=== PATIENT | male | born 1985 | race Caucasian/White ===

== ENCOUNTER 2017-10-11 18:27 | Emergency (ER) | payer SELFPAY ==
[~2017-10-11] VITALS: Ht 182.9 cm; Wt 115.7 kg
[~2017-10-11 18:27] MED LIST: METF10007 PO; NPH,100V SQ
[2017-10-11 18:40] VITALS: BP 145/75
[2017-10-11] MEDS ORDERED: HYDROcodone/APAP 5/325MG 1 TAB TABLET PO ONE (19:15)
[2017-10-11] MEDS ORDERED: cefTRIAXone IM 1 GM VIAL IM ONE (19:15)
[2017-10-11] MEDS ORDERED: SULF1TAB24 PO (19:25)
[2017-10-11] MEDS ORDERED: IBUP-1060 PO (19:26)
--- NOTE | 2017-10-11 19:27 | PHYS DOC ---
Past Medical History Past Medical History: Diabetes-Type II Past Surgical History: No Surgical History Alcohol Use: None Drug Use: Marijuana Social History Narrative: pt denies 10/11/17 Adult General Chief Complaint Chief Complaint: ABSCESS HPI HPI Patient is a 32 year old male who presents with an abscess to his upper back that started a few days ago. He has been using a heating pad with no relief. The patient has several small areas that resemble pickings as well as numerous healed lesions covering his back and neck. He states that he needs pain medication. Review of Systems Review of Systems Constitutional: Denies fever or chills [] Respiratory: Denies cough or shortness of breath [] Cardiovascular: No additional information not addressed in HPI [] GI: Denies abdominal pain, nausea, vomiting, bloody stools or diarrhea [] : Denies dysuria or hematuria [] Musculoskeletal: Denies back pain or joint pain [] Integument: See HPI Neurologic: Denies headache, focal weakness or sensory changes [] Endocrine: Denies polyuria or polydipsia [] All other systems were reviewed and found to be within normal limits, except as documented in this note. Current Medications Current Medications Current Medications Medications (Trade) Dose Ordered Sig/Patrica Start Time Stop Time Status Last Admin Dose Admin Acetaminophen/ Hydrocodone Bitart (Lortab 5/325) 1 tab 1X ONCE 10/11/17 19:15 10/11/17 19:16 DC 10/11/17 19:19 1 TAB Ceftriaxone Sodium (Rocephin Im) 1 gm 1X ONCE 10/11/17 19:15 10/11/17 19:16 DC 10/11/17 19:18 1 GM Allergies Allergies Allergies Coded Allergies Type Severity Reaction Last Updated Verified No Known Drug Allergies 04/17/15 No Physical Exam Physical Exam Constitutional: Well developed, well nourished, no acute distress, non-toxic appearance. [] Neck: Normal range of motion, no tenderness, supple, no stridor. [] Cardiovascular:Heart rate regular rhythm, no murmur [] Lungs & Thorax: Bilateral breath sounds clear to auscultation [] Abdomen: Bowel sounds normal, soft, no tenderness, no masses, no pulsatile masses. [] Skin: 2 cm in diameter abscess with induration but no fluctuance to the patient' s left upper back with several small erythematous lesions that resemble pickings noted to back and neck Back: No tenderness, no CVA tenderness. [] Extremities: No tenderness, no cyanosis, no clubbing, ROM intact, no edema. [] Neurologic: Alert and oriented X 3, normal motor function, normal sensory function, no focal deficits noted. [] Psychologic: Affect normal, judgement normal, mood normal. [] Current Patient Data Vital Signs Vital Signs Date Time Temp Pulse Resp B/P (MAP) Pulse Ox O2 Delivery O2 Flow Rate FiO2 10/11/17 19:19 16 99 Room Air 10/11/17 18:40 97.7 118 145/75 (98) 97.7 EKG EKG [] Radiology/Procedures Radiology/Procedures [] Course & Med Decision Making Course & Med Decision Making Pertinent Labs and Imaging studies reviewed. (See chart for details) []The patient was given pain medication in the emergency department. He stated to the nurse that he takes 4 times that amount normally. I suggested that he try ibuprofen to help with pain. Attending physician attestation: I was working at the time of this patient's ER visit and was available for consultation, but did not personally interview, examine, or directly take part in the patient's care. DO Ectro Szymanski Disclaimer Ector Disclaimer This electronic medical record was generated, in whole or in part, using a voice recognition dictation system. Departure Departure Impression: Primary Impression: Abscess Disposition: 01 HOME, SELF-CARE Condition: STABLE Referrals: NO PCP (PCP) Patient Instructions: Abscess Additional Instructions: Take the medication as directed. Follow-up with your primary care provider for recheck in 3 days or return to the emergency department if worsening. You may use ibuprofen or Tylenol for pain. You may use hot compresses on the abscess multiple times daily. Scripts Ibuprofen (IBUPROFEN) 800 Mg Tablet 800 MG PO PRN Q6HRS PRN for INFLAMMATION, #20 TAB Prov: NATALY NAIR CHIEF DEPUTY COURT CLERK 10/11/17 Sulfamethoxazole/Trimethoprim (BACTRIM DS TABLET) 1 Each Tablet 1 TAB PO BID, #20 TAB Prov: NATALY NAIR CHIEF DEPUTY COURT CLERK 10/11/[address]IEF DE[address] CLERK Oct 11, 2017 19:27 KARELY SANTANA DO Oct 15, 2017 06:27
== END 2017-10-11 19:37 | disposition home or self-care (01) ==
LOC: ER 18:27
DX: L02.212 Cutaneous abscess of back [any part, except buttock and flank] (principal); E11.9 Type 2 diabetes mellitus without complications; F12.10 Cannabis abuse, uncomplicated
CPT/HCPCS: 96372; 99283; J0696